=== PATIENT | female | born 1970 | race Caucasian/White ===

== ENCOUNTER → 2024-12-22 | Outpatient (CLI) | payer BC, OTHER, SELFPAY ==
--- NOTE | 2024-12-22 15:45 | XR_ITS ---
Examination: Screening digital mammography, bilateral Computer aided detection 3-D breast Tomosynthesis, bilateral Date and time of exam: 12/22/2024, 3:31 PM Comparisons: February 2010 through October 2023 Indications: Screening Technique: Nonmagnified MLO, CC views of the breasts to been obtained, reconstructed from 3-D Tomosynthesis images. R2 computer aided detection program utilized for evaluation of suspicious masses and/or abnormal calcifications. 3-D Tomosynthesis images obtained. Technologist: Findings: There are scattered areas of fibroglandular density. No evidence of abnormal masses or suspicious calcifications. Impression: BI-RADS category 1: Negative findings (within normal) Recommend 1 year follow-up mammogram
== END | disposition home or self-care (01) ==
LOC: CDIM 15:19
PROVIDERS: Referring Provider Family Medicine; Visit Provider Family Medicine
DX: Z12.31 Encounter for screening mammogram for malignant neoplasm of breast (principal); R92.313 Mammographic fatty tissue density, bilateral breasts
CPT/HCPCS: 77063; 77067

== ENCOUNTER → 2025-04-02 | Outpatient (CLI) | payer BC, OTHER, SELFPAY ==
[2025-04-02 16:44] LABS: Alanine Aminotransferase 25 U/L (10-49); Albumin, Serum 4.8 gm/dL (3.5-5.0); Albumin/Globulin Ratio 2.1 (1.2-2.2); Alkaline Phosphatase 87 U/L (46-116); Anion Gap 8 (7-16); Aspartate Amino Transferase 19 U/L (0-34); BUN/Creatinine Ratio 21 Ratio (12-20); Bilirubin,Total 0.3 mg/dL (0.3-1.2); Blood Urea Nitrogen 19 mg/dL (9-23); Calcium 9.8 mg/dL (8.3-10.6); Calcium (Corrected) 9.8 mg/dL (8.5-10.1); Carbon Dioxide 29.5 mMol/L (20.0-31.0); Chloride 104 mMol/L (98-107); Creatinine (Component) 0.9 mg/dL (0.6-1.3); Globulin 2.3 gm/dL (2.3-3.5); Glucose 90 mg/dL (74-106); Osmolality,Calculated 283 (275-295); Potassium 4.5 mMol/L (3.4-5.1); Sodium 141 mMol/L (136-145); Thyroid Stimulating Hormone 1.24 uIU/mL (0.55-4.78); Total Protein 7.1 gm/dL (5.7-8.2); eGFR > 60 See Note
[2025-04-09 06:48] LABS: ANA Pattern NUCLEAR, HOMOGENEOUS; ANA Screen, IFA POSITIVE (NEGATIVE)
== END | disposition home or self-care (01) ==
LOC: COPL 15:44
PROVIDERS: PCP Family Medicine; Referring Provider Specialist; Visit Provider Specialist
DX: R13.10 Dysphagia, unspecified (principal)
CPT/HCPCS: 36415; 80053; 84443; 86038

== ENCOUNTER → 2025-04-24 | Outpatient (CLI) | payer BC, OTHER, SELFPAY ==
[2025-04-24 13:24] LABS: Glucose 1/2 Hour 158 mg/dL (110-170)
[2025-04-24 13:25] LABS: Glucose, Fasting 93 mg/dL (74-106)
[2025-04-24 13:25] LABS: Glucose 1 Hour 181 mg/dL (120-170)
[2025-04-24 14:07] LABS: Glucose 2 Hour 68 mg/dL (70-120)
== END | disposition home or self-care (01) ==
LOC: COPL 10:50
PROVIDERS: PCP Family Medicine; Referring Provider Family Medicine; Visit Provider Family Medicine
DX: R73.01 Impaired fasting glucose (principal)
CPT/HCPCS: 36415; 82951; 82952

== ENCOUNTER → 2025-05-07 | Outpatient (CLI) | payer BC, OTHER, SELFPAY ==
[2025-05-07 17:47] LABS: Alanine Aminotransferase 20 U/L (10-49); Albumin, Serum 4.8 gm/dL (3.5-5.0); Albumin/Globulin Ratio 1.9 (1.2-2.2); Alkaline Phosphatase 88 U/L (46-116); Anion Gap 7 (7-16); Aspartate Amino Transferase 19 U/L (0-34); BUN/Creatinine Ratio 16 Ratio (12-20); Bilirubin,Total 0.3 mg/dL (0.3-1.2); Blood Urea Nitrogen 16 mg/dL (9-23); Calcium 9.6 mg/dL (8.3-10.6); Calcium (Corrected) 9.6 mg/dL (8.5-10.1); Carbon Dioxide 28.6 mMol/L (20.0-31.0); Chloride 106 mMol/L (98-107); Creatinine (Component) 1.0 mg/dL (0.6-1.3); Globulin 2.5 gm/dL (2.3-3.5); Glucose 96 mg/dL (74-106); Osmolality,Calculated 284 (275-295); Potassium 4.3 mMol/L (3.4-5.1); Sodium 142 mMol/L (136-145); Thyroid Stimulating Hormone 1.49 uIU/mL (0.55-4.78); Total Protein 7.3 gm/dL (5.7-8.2); eGFR > 60 See Note
[2025-05-14 10:52] LABS: ANA Pattern NUCLEAR, HOMOGENEOUS; ANA Screen, IFA POSITIVE (NEGATIVE); ANA Titer 1:80 titer
== END | disposition home or self-care (01) ==
PROVIDERS: PCP Family Medicine; Referring Provider Specialist; Visit Provider Specialist
DX: R13.10 Dysphagia, unspecified (principal)
CPT/HCPCS: 36415; 80053; 84443; 86038

== ENCOUNTER → 2025-05-09 | Outpatient (CLI) | payer BC, OTHER, SELFPAY ==
--- NOTE | 2025-05-09 15:30 | XR_ITS ---
Examination: CT soft tissue neck, with intravenous contrast. 2-D coronal reconstructions. 2-D sagittal reconstructions. Date date and time: May 09, 2025, 1546 hours INDICATIONS: Difficulty swallowing beginning 6 months ago. CTDI: vol (mGy):19.6 DLP: (mGycm):580 0 Technique: 1.25 mm axial sections of the neck of the obtained. Coronal and sagittal reconstructions have been obtained. Intravenous contrast administered 50 cc Isovue 370. Low dose protocols were performed. One or more of the following dose reduction techniques were used; automated exposure control, adjustment of the mA and/or KV according to patient size, use of iterative reconstruction technique. Findings: Symmetrical nasopharynx oropharynx Bilateral carotid triangle lymph nodes, the largest on the left side 11 mm Symmetrical submandibular glands The larynx appears normal Esophageal wall does not appear thickened. Normal epiglottis No prevertebral soft tissue prominence Moderate degenerative disc disease C5-C6 Lung apices clear IMPRESSION: No soft tissue neck mass Nonspecific carotid triangle lymphadenopathy
== END | disposition home or self-care (01) ==
LOC: CCTX 14:58
PROVIDERS: PCP Family Medicine; Referring Provider Specialist; Visit Provider Specialist
DX: R59.1 Generalized enlarged lymph nodes (principal)
CPT/HCPCS: 70491; A4649; Q9967

== ENCOUNTER 2025-05-14 10:30 | Day surgery (SDC) | payer BC, OTHER, SELFPAY ==
--- NOTE | 2025-05-11 10:41 | EKG_ITS ---
[facility] Test Date: 2025-05-11 Pat Name: JABARI JARAMILLO Department: Room: - Gender: Female Living Coach: CECIL : 1970 Requested By: Ivan Gonzalez Order Number: [id number] Reading MD: Ivan Gonzalez Measurements Intervals [place] Rate: 65 P: 41 [place]: 133 QRS: 40 QRSD: 106 T: 45 QT: 428 QTc: 445 Interpretive Statements SINUS RHYTHM INCOMPLETE RIGHT BUNDLE BRANCH BLOCK [90+ ms QRS DURATION, TERMINAL R IN V1/V2, 40+ ms S IN I/aVL/V4/V5/V6] No previous ECG available for comparison /store/S0/[id number]/ecg/[id number].pdf
[2025-05-11 12:11] LABS: HCG,Qualitative Serum Negative
[2025-05-11 12:18] LABS: Alanine Aminotransferase 30 U/L (10-49); Albumin, Serum 4.8 gm/dL (3.5-5.0); Albumin/Globulin Ratio 2.0 (1.2-2.2); Alkaline Phosphatase 85 U/L (46-116); Anion Gap 10 (7-16); Aspartate Amino Transferase 32 U/L (0-34); BUN/Creatinine Ratio 14 Ratio (12-20); Bilirubin,Total 0.4 mg/dL (0.3-1.2); Blood Urea Nitrogen 11 mg/dL (9-23); Calcium 9.7 mg/dL (8.3-10.6); Calcium (Corrected) 9.7 mg/dL (8.5-10.1); Carbon Dioxide 28.2 mMol/L (20.0-31.0); Chloride 104 mMol/L (98-107); Creatinine (Component) 0.8 mg/dL (0.6-1.3); Globulin 2.4 gm/dL (2.3-3.5); Glucose 102 mg/dL (74-106); Osmolality,Calculated 282 (275-295); Potassium 4.6 mMol/L (3.4-5.1); Sodium 142 mMol/L (136-145); Total Protein 7.2 gm/dL (5.7-8.2); eGFR > 60 See Note
[2025-05-11 12:29] LABS: INR 1.0 (0.9-1.3); Partial Thromboplastin Time 27.1 Seconds (22.0-36.0); Prothrombin Time 10.8 Seconds (9.0-12.2)
[2025-05-11 15:00] VITALS: BMI 55.4
[2025-05-14] VITALS (8 sets, daily range): BP systolic 116–151; BP diastolic 67–79; PULSE 63–95; RESP 16–20; TEMP 36.8–37; O2SAT 95–98; BMI 54.3
[2025-05-14] MEDS: RINGERS LACTATED 1000 ML 1,000 ML 20 ML IV (13:07)
--- NOTE | 2025-05-14 13:43 | SUR.PHASEI ---
Arrived to recovery [facility] via gurney. Resting with eyes closed. No s/o distress or discomfort. No c/o pain. Respirations even and unlabored. Report received from Polly LUKE and Dr. Donis.
--- NOTE | 2025-05-14 13:51 | SUR.PHASEI ---
1353 Report received from Michelle LUKE
--- NOTE | 2025-05-14 14:47 | SUR.PHASEII ---
1447 Patient meets discharge criteria from recovery, awake and alert, breathing unlabored, vital signs stable, denies pain and nausea, drinking water; tolerating well, able to dress herself into her clothing, discharge instructions given to patient and patients , signed discharge instructions. Patient given all her belongings prior to discharge, transported via wheelchair and left in a private vehicle.
== END 2025-05-14 14:47 | disposition home or self-care (01) ==
PROVIDERS: PCP Family Medicine; Referring Provider Specialist; Visit Provider Specialist
PROC: 0DJD8ZZ Inspection of Lower Intestinal Tract, Via Natural or Artificial Opening Endoscopic (ICD-10-PCS; CPT 45378; principal; 2025-05-14 12:30)
PROC: (CPT 43239; 2025-05-14 12:30)
DX: Z12.11 Encounter for screening for malignant neoplasm of colon (principal); Z01.810 Encounter for preprocedural cardiovascular examination; I45.10 Unspecified right bundle-branch block; D12.5 Benign neoplasm of sigmoid colon; K64.9 Unspecified hemorrhoids; K31.7 Polyp of stomach and duodenum; K29.50 Unspecified chronic gastritis without bleeding; K31.89 Other diseases of stomach and duodenum; K22.2 Esophageal obstruction; K20.90 Esophagitis, unspecified without bleeding
CPT/HCPCS: 45385; 43248; 43239; 36415; 80053; 81025; 84703; 85610; 85730; 93005; C1769; J7120

== ENCOUNTER 2025-06-20 06:38 | Day surgery (SDC) | payer BC, OTHER, SELFPAY ==
--- NOTE | 2025-06-19 07:00 | EKG_ITS ---
[facility] Test Date: 2025-06-19 Pat Name: JABARI JARAMILLO Department: Room: - Gender: Female Fashion Intern: KISHAN : 1970 Requested By: Tree Chaves Order Number: [id number] Reading MD: Tree Chaves Measurements Intervals [place] Rate: 68 P: 70 [place]: 145 QRS: 59 QRSD: 104 T: 54 QT: 418 QTc: 446 Interpretive Statements SINUS RHYTHM Compared to ECG 05/11/2025 10:46:06 Incomplete right bundle-branch block no longer present /store/S0/[id number]/ecg/[id number].pdf
[2025-06-19 11:01] VITALS: BMI 55.6
[2025-06-19 12:54] LABS: Basophils # (Auto) 0.1 Thou/mm3 (0.0-0.2); Basophils % (Auto) 1 % (0-2.5); Eosinophils # (Auto) 0.1 Thou/mm3 (0.0-0.5); Eosinophils % (Auto) 1 % (0-10); Hematocrit 38.2 % (36.0-46.0); Hemoglobin 12.1 g/dL (12.0-16.0); Immature Granulocytes Auto 0.02 Thou/mm3 (0.00-0.00); Lymphocytes # (Auto) 2.2 Thou/mm3 (1.0-4.8); Lymphocytes % (Auto) 32 % (10-50); Mean Corpuscular HGB Conc 31.7 g/dl (31.0-37.0); Mean Corpuscular Hemoglobin 29.5 pg (25.0-35.0); Mean Corpuscular Volume 93 fL (80-100); Monocytes # (Auto) 0.4 Thou/mm3 (0.0-0.8); Monocytes % (Auto) 6 % (0-12); Neutrophils # (Auto) 4.0 Thou/mm3 (1.8-7.7); Neutrophils % (Auto) 60 % (37-80); Nucleated Red Blood Cell # 0.00 Thou/mm3 (0.00-0.00); Nucleated Red Blood Cell % 0 /100 WBC (0); Platelet Count 337 Thou/mm3 (140-440); RDW Standard Deviation 47.8 fL (36.4-46.3); Red Blood Count 4.10 Miln/mm3 (4.00-5.20); White Blood Count 6.7 Thou/mm3 (3.6-11.0)
[2025-06-19 13:04] LABS: INR 1.0 (0.9-1.3); Partial Thromboplastin Time 25.8 Seconds (22.0-36.0); Prothrombin Time 10.7 Seconds (9.0-12.2)
[2025-06-19 13:16] LABS: Anion Gap 9 (7-16); BUN/Creatinine Ratio 19 Ratio (12-20); Blood Urea Nitrogen 13 mg/dL (9-23); Calcium 9.7 mg/dL (8.3-10.6); Carbon Dioxide 28.0 mMol/L (20.0-31.0); Chloride 105 mMol/L (98-107); Creatinine (Component) 0.7 mg/dL (0.6-1.3); Estimated Creatinine Clearance 131.3 mL/min (>60); Glucose 93 mg/dL (74-106); Osmolality,Calculated 283 (275-295); Potassium 4.3 mMol/L (3.4-5.1); Sodium 142 mMol/L (136-145); eGFR > 60 See Note
[2025-06-20] VITALS (11 sets, daily range): BP systolic 107–162; BP diastolic 60–73; PULSE 69–76; RESP 16–98; TEMP 36.5–36.6; O2SAT 93–99
[2025-06-20] MEDS: ACETAMINOPHEN 325 MG TABLET 650 MG PO (09:33)
--- NOTE | 2025-06-20 10:41 | PD.CARDCATH ---
Cardiac Cath Procedure Procedure Name Date of procedure: 06/20/25 SANDBLASTING SUPERVISOR: Tree Chaves MD PROCEDURE PERFORMED: 1. Left heart cardiac catheterization- Left and right coronary angiograms with LVEDP measurement and left ventriculogram 2. Ultrasound-guided access of the right radial artery 3. Conscious sedation for 30 minutes.. Procedure Narrative HISTORY AND INDICATIONS: Patient is a 54 year old female with a limited past medical history of obesity and sleep apnea. Patient came in to the office complaining of chest pain, described as left-sided sharp pains of around 10/10 in intensity. Patient had cardiac ischemic work up and NST showed mild decreased uptake in the anterior anterolateral segments. Patient was brought in for an elective cardiac catheterization. Patient was explained the risk benefits and alternatives of performing a left heart cardiac catheterization including the risk of bleeding, heart attack, stroke and in detail and the agreeable for the procedure. Consent signed, placed in the chart and H&P updated. DESCRIPTION OF PROCEDURE: The patient was brought to the cardiac catheterization lab and all asceptic precautions were followed. Patient was given 1 Mg of Versed and 50 mcg of fentanyl for moderate conscious sedation. 2 mL of lidocaine was given in the right wrist. The right radial artery was accessed via the ultrasound guidance as well as micropuncture technique. A 6 [place] glide sheath was introduced. We then used a 5 [place] TIG 4 catheter to perform the left and right coronary angiograms as well as a left ventriculogram which showed the following findings. 1. Left ventricular ejection fraction was normal at 60 to 65% without any regional wall motion abnormalities. LVEDP was normal at 21 mmHg. There was no significant transvalvular aortic gradient. 2. Right dominant circulation 3. Left main artery is a large-caliber vessel gives rise to LAD, LCX and without any significant disease. 4. LAD is a large sized artery, gives rise to a medium size diagonal and without show any significant disease. 5. LCx is a large sized artery, gives rise to a medium OM1 and small OM2 without any significant disease. 6. RCA is a large artery, gives rise to a medium RPDA and RPL without any significant disease. A radial band was used to achieve the hemostasis of the right radial artery access. Patient will be monitored in the cardiac continuous miner operator for the next 2 to 3 hours and will be discharged home / telemetry later today if hemodynamically stable. Complications: None Specimens: None Blood loss: Estimated 5-10 ml Summary/findings: 1. Abnormal Stress test: LHC showed normal coronaries with only minimal luminal irregularities and no angiographically significant obstruction. 2. LVEF normal at 60-65% and LVEDP mildly elevated at 21 mmHg. No significant transvalvular aortic gradient. Recommendations: 1. Recommend aggressive medical treatment and aggressive risk factor modification. 2. Recommended no lifting more than 5 pounds for next 7-10 days and follow up in my office in 7 days. Tree Chaves MD Interventional Cardiology.
--- NOTE | 2025-06-20 11:30 | PC.NURSE ---
patient transfered to private vehicle via wheelchair. education given to both patient and significant other. both expressed verbal understanding. site is soft, flat, slightly tender, and no signs of hematoma. dressing is clean, dry, and intact.
== END 2025-06-20 11:30 | disposition home or self-care (01) ==
PROVIDERS: PCP Family Medicine; Referring Provider Internal Medicine Cardiovascular Disease; Visit Provider Internal Medicine Cardiovascular Disease
PROC: (CPT 93458; principal; 2025-06-20 07:30)
DX: R07.89 Other chest pain (principal); E66.9 Obesity, unspecified; Z68.43 Body mass index [BMI] 50.0-59.9, adult; Z01.810 Encounter for preprocedural cardiovascular examination
CPT/HCPCS: 93458; 36415; 80048; 85025; 85610; 85730; 93005; 99152; A4649; C1769; C1887; C1894; J0168; J0461; J1643; J2250; J2312; J2371; J2405; J3010; J3490; Q9967; A9270; J2305

== ENCOUNTER 2025-06-24 13:02 | Emergency (ER) | payer BC, OTHER, SELFPAY ==
[2025-06-24 13:32] VITALS: BP 137/99; PULSE 70; RESP 20; TEMP 37.2; O2SAT 98
--- NOTE | 2025-06-24 13:50 | EDNOTE_ITS ---
Upper Extremity Injury RME/HPI General Chief Complaint: Hand/Wrist Problems Stated Complaint: UNABLE TO MOVE R) HAND/WRIST Time Seen by Provider: 06/24/25 13:42 Arrival date/time: 06/24/25 13:02 RME / HPI RME / HPI narrative: DR. MOTA MAIN ED EVALUATION: 54-year-old female presents with right arm pain following an angiogram on Wednesday. Pain began Wednesday, is described as shooting up the arm, and is worsened by movement and bending. She reports trying ibuprofen 400 mg last night without relief, and diclofenac today with no improvement. She denies numbness or weakness. Related Data Allergies Allergy/AdvReac Type Severity Reaction Status Date / Time No Known Allergies Allergy Verified 06/24/25 13:06 Review of Systems Review of Systems Systems Reviewed: All systems reviewed, normal except as documented Past Medical History Past Medical History CARDIAC: Positive Cardiac Disorders (flutters feeling unwell, not diagnosed with anything at this time) RESPIRATORY: Positive Sleep Apnea REPRODUCTIVE: Positive Previous Pregnancies (x1) MUSCULOSKELETAL: Positive Musculoskeletal Disorders and Arthritis OTHER HISTORY: Positive Anesthesia Reactions (N/V) and Chicken Pox Surgical History SURGICAL: Positive Endocrine Surgery, Tonsillectomy (AND UVULA), Throat Surgery, Abdominal Surgery, Joint Replacement and Hysterectomy Social History SMOKING STATUS: Never smoker SUBSTANCE USE: does not use ALCOHOL: Never ED Exam Narrative Physical exam: GENERAL APPEARANCE: alert and oriented x 4, well-developed, well-nourished VITALS: All vitals were reviewed and the pulse ox is 98% on room air, which is normal according to my interpretation. HEENT: Normocephalic, atraumatic; pupils equal, round, reactive to light; EOMI; mucous membranes pink, moist; oropharynx clear NECK: Supple LUNGS: CTABL; no wheezes, no rales, no rhonchi HEART: Regular rate, regular rhythm; normal S1, S2; no murmurs ABDOMEN: non distended; normal BS; soft, no tenderness, no guarding, no rebound; no masses, no organomegaly, no hernia BACK: no CVA tenderness EXTREMITIES: tenderness of the right arm; limited ROM of right arm due to pain, but NV is intact with radial and ulnar pulses present and hand warm and dry without discoloration NEUROLOGIC: awake; alert and oriented x4; cranial nerves II-XII grossly intact; no focal sensory or motor deficits PSYCHIATRIC: appropriate mood and affect SKIN: warm, dry, normal color; no rashes Course Quality Measures none Orders Category Date Time Status US venous doppler UE RT Stat Exams 06/24/25 14:03 Completed HYDROcodone*/APAP 5/325 [[place] 5/325] Med 06/24/25 13:47 Discontinued 1 tab PO X1 ONE Ketorolac Inj [Toradol Inj] Med 06/24/25 13:47 Discontinued 30 mg IM X1 ONE Vital Signs Vital signs: Vital Signs Temperature 99.0 F 06/24/25 13:32 Pulse Rate 70 06/24/25 13:32 Respiratory Rate 20 06/24/25 13:32 Blood Pressure 137/99 H 06/24/25 13:32 Pulse Oximetry (%) 98 06/24/25 13:32 Oxygen Delivery Method Room Air 06/24/25 13:32 Extremity Injury MDM Narrative MDM Narrative:: 54-year-old female with recent angiogram presents with right arm pain, tenderness, ecchymosis, and limited ROM due to pain. NV is intact with radial and ulnar pulses present and hand warm and dry without discoloration. Venous ultrasound was ordered to evaluate for vascular complications such as DVT or pseudoaneurysm. Given intact pulses, no discoloration, and preserved warmth, acute limb ischemia is less likely. Plan includes symptomatic management with pain control and reassessment pending imaging results. Differential diagnosis: Post-procedural hematoma vs. vascular injury (pseudoaneurysm, thrombosis) vs. musculoskeletal pain vs. nerve irritation. Most likely diagnosis given after review of the tests above: Ranjana Telles am scribing for and in the presence of Dr. Mota. Patient data External records reviewed:: [facility] previous records Clinical information provided by:: patient Social determinants that could affect healthcare access:: none Patient has the following chronic illnesses:: Recent angiogram on Wednesday. Other past surgical history of cholecystectomy (1990), throat and nasal surgery (2009), right shoulder surgery (2014), left shoulder surgery (2019), and hysterectomy (2011). How is presenting disease/condition affected by chronic disease/condition?: exacerbated by Evaluation data The following diagnostics were reviewed and interpreted by me:: radiology exam(s) Lab and/or radiology exams considered but not ordered:: none Interpretation Summary: See MDM narrative above. Medications / Prescriptions Medications or Prescriptions considered but not ordered:: none Medication administrations:: Medication Administration History Discontinued Medications Hydrocodone Bitart/Acetaminophen (Hydrocodone/Apap 5/325 Tablet) 1 tab PO X1 ONE Stop: 06/24/25 13:48 Last Admin: 06/24/25 14:40 Dose: 1 tab Documented By: DENISE Ketorolac Tromethamine (Ketorolac Inj 60 Mg/2 Ml Vial) 30 mg IM X1 ONE Stop: 06/24/25 13:48 Last Admin: 06/24/25 14:41 Dose: 30 mg Documented By: DENISE see above Consultations Consultation(s) initiated? (list below): Yes Consultation #1 (Physician, Specialty, Details): Discussed test HPI, PMHx, lab, radiology results and/or management with Dr. Chaves. Will see at his office as an outpatient and patient can be discharged. Time: 17:54 Diagnosis Upper Extremity Injury Differential Diagnosis: other (Post-procedural hematoma vs. vascular injury (pseudoaneurysm, thrombosis) vs. musculoskeletal pain vs. nerve irritation.) Most likely diagnosis given after review of the tests above:: Right wrist pain Postprocedural pain of extremity following cardiac catheterization Admission Indicated Admission indicated?: not indicated Admission Request Was there a request for admission?: No Disposition Plan Disposition Plan: Discharge Discharge Attestation Discharge Attestation: The patient and all family members were given an opportunity to ask questions and understood the discharge instructions. Discharge instructions specifically effects, indications for sooner follow up or return to the emergency department, and the expected course of current diagnosis. Patient condition: Stable Discharge Plan Plan Patient Disposition: HOME (Self Care) Prescriptions/Referrals Referrals: Tree Chaves MD [Physician, Cardiology] - 06/25/25 Kenton Khan MD [Primary Care Provider, Family Practice] - In 1 week Problem List Clinical Impression: Right wrist pain, Postprocedural pain of extremity following cardiac catheter ization Patient/Caregiver Discharge Instructions Additional Instructions: Follow up with Dr. Chaves tomorrow, 06/24/25 Print Language: Cymro Stand Alone Forms: [employer] Award Info., Patient Portal Info Letter
--- NOTE | 2025-06-24 14:03 | XR_ITS ---
Examination: Duplex scan of the upper extremity, unilateral right complete Date and time of exam: June 24, 2025 1402 hrs. Indications: Hand wrist and arm swelling and pain 3 days post angiogram Technique: Duplex scan of the extremity veins using B-mode/grayscale imaging and Doppler spectral analysis and color flow Attention is directed to internal echogenicity, compression and augmentation involving these veins, color flow assessment, spectral analysis Findings: Major deep venous structures in the extremity demonstrate normal course and caliber. There is no evidence of deep vein thrombosis. Normal color flow and spectral analysis Impression: Negative for DVT..
[2025-06-24] MEDS: HYDROcodone/APAP 5/325 TABLET 1 TAB PO (14:40)
[2025-06-24] MEDS: KETOROLAC INJ 60 MG/2 ML VIAL 30 MG IM (14:41)
== END 2025-06-24 18:34 | disposition home or self-care (01) ==
PROVIDERS: Emergency Provider Emergency Medicine; PCP Family Medicine
DX: M25.531 Pain in right wrist (principal); G89.18 Other acute postprocedural pain
CPT/HCPCS: 93971; 96372; 99283; J1885; A9270

== ENCOUNTER → 2025-07-04 | Outpatient (CLI) | payer BC, OTHER, SELFPAY ==
[2025-07-04 11:20] LABS: Basophils # (Auto) 0.1 Thou/mm3 (0.0-0.2); Basophils % (Auto) 1 % (0-2.5); Eosinophils # (Auto) 0.1 Thou/mm3 (0.0-0.5); Eosinophils % (Auto) 1 % (0-10); Hematocrit 39.7 % (36.0-46.0); Hemoglobin 12.6 g/dL (12.0-16.0); Immature Granulocytes Auto 0.01 Thou/mm3 (0.00-0.00); Lymphocytes # (Auto) 1.9 Thou/mm3 (1.0-4.8); Lymphocytes % (Auto) 30 % (10-50); Mean Corpuscular HGB Conc 31.7 g/dl (31.0-37.0); Mean Corpuscular Hemoglobin 29.2 pg (25.0-35.0); Mean Corpuscular Volume 92 fL (80-100); Monocytes # (Auto) 0.3 Thou/mm3 (0.0-0.8); Monocytes % (Auto) 5 % (0-12); Neutrophils # (Auto) 3.9 Thou/mm3 (1.8-7.7); Neutrophils % (Auto) 63 % (37-80); Nucleated Red Blood Cell # 0.00 Thou/mm3 (0.00-0.00); Nucleated Red Blood Cell % 0 /100 WBC (0); Platelet Count 330 Thou/mm3 (140-440); RDW Standard Deviation 46.5 fL (36.4-46.3); Red Blood Count 4.32 Miln/mm3 (4.00-5.20); White Blood Count 6.2 Thou/mm3 (3.6-11.0)
[2025-07-04 11:31] LABS: Sed Rate (ESR) 21 mm/hr (0-30)
[2025-07-04 11:38] LABS: Alanine Aminotransferase 29 U/L (10-49); Albumin, Serum 4.8 gm/dL (3.5-5.0); Albumin/Globulin Ratio 2.1 (1.2-2.2); Alkaline Phosphatase 94 U/L (46-116); Anion Gap 10 (7-16); Aspartate Amino Transferase 22 U/L (0-34); BUN/Creatinine Ratio 15 Ratio (12-20); Bilirubin,Total 0.5 mg/dL (0.3-1.2); Blood Urea Nitrogen 12 mg/dL (9-23); Calcium 10.0 mg/dL (8.3-10.6); Calcium (Corrected) 10.0 mg/dL (8.5-10.1); Carbon Dioxide 28.5 mMol/L (20.0-31.0); Cardiac Risk Estimate 3.4 RATIO (3.7-5.6); Chloride 105 mMol/L (98-107); Cholesterol 226 mg/dL (132-200); Creatinine (Component) 0.8 mg/dL (0.6-1.3); Globulin 2.3 gm/dL (2.3-3.5); Glucose 101 mg/dL (74-106); HDL Cholesterol 67 mg/dL (40-60); LDL Cholesterol,Calculated 142 mg/dL (0-130); Osmolality,Calculated 284 (275-295); Potassium 4.4 mMol/L (3.4-5.1); Sodium 143 mMol/L (136-145); Total Protein 7.1 gm/dL (5.7-8.2); Triglycerides 86 mg/dL (30-150); eGFR > 60 See Note
[2025-07-04 11:53] LABS: Syphilis Nonreactive (Nonreactive)
[2025-07-09 07:18] LABS: ANA Pattern NUCLEAR, HOMOGENEOUS; ANA Screen, IFA POSITIVE (NEGATIVE); ANA Titer 1:80 titer
== END | disposition home or self-care (01) ==
LOC: COPL 10:17
PROVIDERS: PCP Family Medicine; Referring Provider Family Medicine; Visit Provider Family Medicine
DX: Z00.00 Encounter for general adult medical examination without abnormal findings (principal); E78.2 Mixed hyperlipidemia
CPT/HCPCS: 36415; 80053; 80061; 85025; 85652; 86038; 86780